=== PATIENT | female | born 1965 | race Caucasian/White ===

== ENCOUNTER 2020-02-19 16:38 | Observation (INO) ==
[2020-02-19] MEDS ORDERED: Ondansetron 4 MG/2 ML VIAL IVP PRN (17:15)
[2020-02-19 18:24] LABS: Basophils # 0.1 K/mcL (0.0-0.2); Eosinophils # 0.2 K/mcL (0.0-0.6); Eosinophils % 1.5 %; Hematocrit 45.5 % (35.3-44.9); Hemoglobin 15.2 g/dL (11.5-15.4); Immature Granulocytes % 0.6 % (0-4); Lymphocytes # 6.2 K/mcL (0.6-4.6); Mean Corpuscular HGB Conc 33.4 g/dL (31.6-35.5); Mean Corpuscular Hemoglobin 30.8 pg (28.0-33.3); Mean Corpuscular Volume 92.1 fL (83.0-100.0); Mean Platelet Volume 9.3 fL (9.4-12.4); Monocytes # 1.2 K/mcL (0.0-1.3); Platelet Count 390 K/mcL (140-400); Red Blood Count 4.94 M/mcL (3.82-4.97); Red Cell Distribution Width 13.1 % (11.5-14.5)
[2020-02-19] MEDS: 0.9 % Sodium Chloride 1,000 ML IVC SCH (18:25)
[2020-02-19] MEDS: Ampicillin/Sulbactam 3,000 MG in 0.9 % Sodium Chloride Mini Bag 100 ML IVPB SCH (18:35)
[2020-02-19] MEDS: Pantoprazole 40 MG VIAL IVP SCH (18:35)
[2020-02-19 18:43] LABS: Alanine Aminotransferase 131 Units/L (7-52); Albumin 4.4 g/dL (3.5-5.7); Albumin/Globulin Ratio 1.4 (1.1-2.2); Alkaline Phosphatase 74 Units/L (34-104); Aspartate Amino Transferase 67 Units/L (13-39); BUN/Creatinine Ratio 18 (6-26); Bilirubin,Total 0.6 mg/dL (0.3-1.0); Blood Urea Nitrogen 15 mg/dL (6-20); Calcium 9.7 mg/dL (8.6-10.3); Carbon Dioxide 25 mEq/L (23-29); Chloride 99 mEq/L (98-107); Globulin 3.2 g/dL (2.4-3.5); Glucose 113 mg/dL (70-105); Osmolality,Calculated 284 (280-300); Potassium 3.3 mEq/L (3.5-5.1); Sodium 136 mEq/L (136-145); Total Protein 7.6 g/dL (6.4-8.9); eGFR For African Americans > 60 (> 60); eGFR For Non-African Americans > 60 (> 60)
[2020-02-19] MEDS: Acetaminophen IV 1,000 MG/100 ML BAG IVPB SCH (19:44)
[2020-02-19 20:11] LABS: Platelet Estimate Normal (Normal); Reactive Lymphocytes Present (Not Present); Toxic Granulation Present (Not Present)
[2020-02-19 20:37] LABS: Neutrophils # 6.3 K/mcL (1.6-8.9)
[2020-02-19 22:07] LABS: Adenovirus Not Detected (Not Detect); Bordetella Pertussis Not Detected (Not Detect); Chlamydophila pneumoniae Not Detected (Not Detect); Coronavirus 229E Not Detected (Not Detect); Coronavirus HKU1 Not Detected (Not Detect); Coronavirus NL63 Not Detected (Not Detect); Coronavirus OC43 Not Detected (Not Detect); Human Metapneumovirus Not Detected (Not Detect); Human Rhinovirus/Enterovirus Not Detected (Not Detect); Influenza A Subtype 2009 H1 Not Detected (Not Detect); Influenza B Not Detected (Not Detect); Mycoplasma pneumoniae Not Detected (Not Detect); Parainfluenza Virus 1 Not Detected (Not Detect); Parainfluenza Virus 2 Not Detected (Not Detect); Parainfluenza Virus 3 Not Detected (Not Detect); Parainfluenza Virus 4 Not Detected (Not Detect); Respiratory Syncytial Virus Not Detected (Not Detect); SARS-CoV-2 Not Detected (Not Detect)
[2020-02-20] MEDS: Ampicillin/Sulbactam 3,000 MG in 0.9 % Sodium Chloride Mini Bag 100 ML IVPB SCH ×5 (00:12→23:48)
[2020-02-20] MEDS: Acetaminophen IV 1,000 MG/100 ML BAG IVPB SCH ×3 (00:13→12:08)
[2020-02-20] MEDS: 0.9 % Sodium Chloride 1,000 ML IVC SCH ×2 (02:34→13:27)
[2020-02-20] MEDS ORDERED: hydroCHLOROthiazide 25 MG TABLET PO SCH (09:00)
[2020-02-20] MEDS ORDERED: predniSONE 20 MG TABLET PO SCH (09:00)
[2020-02-20] MEDS: Pantoprazole 40 MG VIAL IVP SCH (09:14)
[2020-02-20] MEDS ORDERED: *HR* FentaNYL (PF) 100 MCG/2 ML VIAL ONE ×2 (09:47→11:24)
[2020-02-20] MEDS ORDERED: *HR* Midazolam HCl 2 MG/2 ML VIAL ONE (09:47)
[2020-02-20] MEDS ORDERED: Lidocaine -MPF 2% 2 ML VIAL ONE (09:48)
[2020-02-20] MEDS ORDERED: *HR* Propofol 200 MG/20 ML VIAL IVP ONE (09:48)
[2020-02-20] MEDS ORDERED: *HR* Rocuronium Bromide 50 MG/5 ML VIAL ONE (09:49)
[2020-02-20] MEDS ORDERED: Naloxone 0.4 MG/ML INJ ONE (09:50)
[2020-02-20] MEDS ORDERED: Acetaminophen IV 1,000 MG/100 ML BAG IVPB ONE ×2 (10:20→10:53)
[2020-02-20] MEDS ORDERED: Famotidine 20 MG/2 ML VIAL IVP ONE ×2 (10:20→12:58)
[2020-02-20] MEDS ORDERED: *HR* OxyCODONE Immed Rel 5 MG TABLET PO PRN (10:20)
[2020-02-20] MEDS ORDERED: *HR* Labetalol 20 MG/4 ML SYRINGE IVP PRN (10:20)
[2020-02-20] MEDS ORDERED: Pregabalin 75 MG CAPSULE PO ONE ×2 (10:20→12:58)
[2020-02-20] MEDS ORDERED: *HR* HYDROmorphone 2 MG TABLET PO PRN (10:20)
[2020-02-20] MEDS ORDERED: *HR* Succinylcholine 200 MG/10 ML VIAL IVP ONE (10:20)
[2020-02-20] MEDS ORDERED: Famotidine 20 MG/2 ML VIAL ONE (10:41)
[2020-02-20] MEDS ORDERED: *HR* PHENYLEPHRINE 1,000 MCG/10 ML SYRINGE IVP ONE (11:04)
[2020-02-20] MEDS ORDERED: EPHEDrine 50 MG/ML VIAL ONE (11:09)
[2020-02-20] MEDS ORDERED: Sugammadex Sodium 200 MG/2 ML VIAL IV ONE (11:23)
[2020-02-20] MEDS: *HR* HYDROmorphone (PF) 1 MG/ML SYRINGE IVP PRN ×4 (12:01→12:35)
[2020-02-20] MEDS ORDERED: *HR* OxyCODONE/APAP 5/325 TABLET PO PRN (12:58)
[2020-02-20] MEDS ORDERED: Ondansetron 4 MG/2 ML VIAL IVP PRN (12:58)
[2020-02-20 16:17] LABS: Progesterone 2.1 ng/mL
[2020-02-20] MEDS: Ketorolac 15 MG/ML VIAL IVP SCH ×2 (18:08→23:47)
[2020-02-21 04:32] LABS: Basophils % 0.1 %; Eosinophils % 0.1 %; Hematocrit 39.2 % (35.3-44.9); Immature Granulocytes % 0.4 % (0-4); Lymphocytes % 14.4 %; Mean Corpuscular HGB Conc 33.9 g/dL (31.6-35.5); Mean Corpuscular Hemoglobin 31.7 pg (28.0-33.3); Mean Corpuscular Volume 93.3 fL (83.0-100.0); Mean Platelet Volume 9.3 fL (9.4-12.4); Monocytes # 1.3 K/mcL (0.0-1.3); Monocytes % 9.4 %; Neutrophils # 10.6 K/mcL (1.6-8.9); Platelet Count 339 K/mcL (140-400); Segmented Neutrophils % 75.6 %; White Blood Count 14.1 K/mcL (4.3-11.1)
[2020-02-21 04:35] LABS: Hemoglobin 13.3 g/dL (11.5-15.4)
[2020-02-21 04:51] LABS: Alanine Aminotransferase 184 Units/L (7-52); Albumin 4.1 g/dL (3.5-5.7); Albumin/Globulin Ratio 1.5 (1.1-2.2); Alkaline Phosphatase 63 Units/L (34-104); Aspartate Amino Transferase 105 Units/L (13-39); BUN/Creatinine Ratio 11 (6-26); Bilirubin,Total 0.9 mg/dL (0.3-1.0); Blood Urea Nitrogen 8 mg/dL (6-20); Carbon Dioxide 29 mEq/L (23-29); Chloride 97 mEq/L (98-107); Globulin 2.7 g/dL (2.4-3.5); Glucose 122 mg/dL (70-105); Osmolality,Calculated 280 (280-300); Potassium 2.9 mEq/L (3.5-5.1); Sodium 135 mEq/L (136-145); Total Protein 6.8 g/dL (6.4-8.9); eGFR For African Americans > 60 (> 60); eGFR For Non-African Americans > 60 (> 60)
[2020-02-21 05:07] LABS: Thyroid Stimulating Hormone 0.462 mcIU/mL (0.340-5.600)
[2020-02-21 05:09] LABS: Triiodothyronine (T3) Free 3.24 pg/mL (2.50-3.90)
[2020-02-21 05:14] LABS: Triiodothyronine (T3) Total 0.96 ng/mL (0.87-1.78)
[2020-02-21 05:36] LABS: Follicle Stimulating Hormone 109.02 mIU/mL
[2020-02-21] MEDS: Ketorolac 15 MG/ML VIAL IVP SCH (05:59)
[2020-02-21] MEDS: Ampicillin/Sulbactam 3,000 MG in 0.9 % Sodium Chloride Mini Bag 100 ML IVPB SCH (06:00)
[2020-02-21] MEDS ORDERED: Potassium Chloride 40 MEQ, Lidocaine 1% 2 ML in 0.9 % Sodium Chloride 500 ML IVPB ONE (06:41)
[2020-02-21 07:42] VITALS: BP 164/97
[2020-02-21] MEDS ORDERED: Pantoprazole 40 MG VIAL IVP SCH (09:00)
[2020-02-21] MEDS ORDERED: hydroCHLOROthiazide 25 MG TABLET PO SCH (09:00)
[2020-02-21] MEDS ORDERED: predniSONE 20 MG TABLET PO SCH (09:00)
[2020-02-26 13:00] LABS: Estradiol 8.1 pg/mL; Estrone 21.9 pg/mL
== END 2020-02-21 13:14 | disposition home or self-care (01) ==
LOC: 3ANU
PROVIDERS: ADMIT Surgery; ATTEND Surgery